=== PATIENT | female | born 1935 | race Caucasian/White ===

== ENCOUNTER 2016-07-26 00:49 | Day surgery (SDC) | payer MEDICARE, OTHER ==
[~2016-07-26 00:49] MED LIST: APIX2.5T PO; ATRV10T PO; BACI1CAP6 PO; CALC-762 PO; CARV6.252 PO; CHOL200047 PO; CYAN10008 PO; DENO60DI SQ; DILT180C83 PO; DXM4T PO; FOLI1TAB18 PO; LISI-567 PO; PANT40TA3 PO; PRE20 PO; TEMA15CA3 PO; [UNRECOGNIZED DRUG - CODE] PO
[2016-07-26] MEDS ORDERED: 0.9% Sodium Chloride 500 ML ONE (13:59)
[2016-07-26 14:28] LABS: BASOPHILS % (AUTO) 0.2 % (0-3); EOSINOPHILS % (AUTO) 0.2 % (0-5); MONOCYTES % (AUTO) 7.2 % (4-12); Mean Corpuscular Hemoglobin 34.3 pg (27.0-35.0); Mean Corpuscular Volume 105.9 fL (81-100); NEUTROPHILS % (AUTO) 68.8 % (40-74); Platelet Count 78 bil/L (150-400)
[2016-07-26] MEDS ORDERED: ACYC400T2 PO (14:37)
[2016-07-26] MEDS ORDERED: fentaNYL-PF 50 mCg/mL 2 mL Inj ONE (14:42)
[2016-07-26] MEDS ORDERED: Methohexital 10 mg/mL 50 mL Inj ONE (14:45)
[2016-07-26 14:52] VITALS: BP 123/62; PULSE 78; RESP 16; O2SAT 94
[2016-07-26] MEDS ORDERED: Flumazenil 0.1 mg/mL 5 mL Inj IV ONE (15:02)
--- NOTE | 2016-07-26 16:07 | NUR ---
Admitted for a [facility]SHK[facility] with cardioversion today, but the case was cancelled per Dr Ewing due to sub-therapeutic dosing of Eliquis. Dose of Eliquis was increased from 2.5mg PO BID to Eliquis 5mg PO BID. Pt did not take Eliquis 2.5mg today at 1200 - not understanding the importance of exact dosing 12 hours apart. Eliquis 5mg PO taken from patient bottle prior to patient discharge from [facility] - as requested by Dr Ewing. D/C instructions reviewed in detail with patient and patient's sister. Office will contact her at home with date and time of next Cardioversion.
== END 2016-07-26 23:59 | disposition home or self-care (01) ==
LOC: SPI 00:49
PROVIDERS: ATTEND Internal Medicine Cardiovascular Disease
DX: I48.1 Persistent atrial fibrillation (principal); Z53.09 Procedure and treatment not carried out because of other contraindication; R79.1 Abnormal coagulation profile; Z79.01 Long term (current) use of anticoagulants; I10 Essential (primary) hypertension; E78.5 Hyperlipidemia, unspecified; Z87.891 Personal history of nicotine dependence
CPT/HCPCS: 36415; 80048; 85025; 93005; J2250; J7040